=== PATIENT | female | born 2000 | race Two or more races ===

== ENCOUNTER 2022-11-26 08:26 | Emergency (ER) | payer OTHER ==
[2022-11-26 08:36] VITALS: BMI 26.6
[2022-11-26] MEDS ORDERED: LIDOCAINE 1%/EPI 1:100000 (50 ML MULTI DOSE VIAL) ONE (09:27)
[2022-11-26] MEDS ORDERED: KETAMINE HCL 200 MG/20 ML VIAL IVPUSH ONE (09:46)
[2022-11-26] MEDS ORDERED: LIDOCAINE 2%/EPINEPHRINE 1:100000 (50 ML MD VIAL) NR ONE (09:52)
[2022-11-26] MEDS ORDERED: LIDOCAINE 1%/EPI 1:100000 (50 ML MULTI DOSE VIAL) NR ONE (09:54)
[2022-11-26] MEDS ORDERED: KETAMINE HCL 200 MG/20 ML VIAL IM ONE (10:15)
[2022-11-26] MEDS ORDERED: MIDAZOLAM HCL 5 MG/1 ML Single Dose Vial IM ONE ×2 (10:23→11:31)
[2022-11-26] MEDS ORDERED: MIDAZOLAM HCL 5 MG/1 ML Single Dose Vial ONE ×2 (10:25→11:36)
[2022-11-26] MEDS ORDERED: MIDAZOLAM HCL 2 MG/2 ML SINGLE DOSE VIAL IVPUSH ONE (10:58)
[2022-11-26] MEDS ORDERED: MIDAZOLAM HCL 2 MG/2 ML SINGLE DOSE VIAL IM ONE (11:00)
[2022-11-26] MEDS ORDERED: MIDAZOLAM HCL 2 MG/2 ML SINGLE DOSE VIAL ONE (11:02)
[2022-11-26 17:28] VITALS: BP 116/76; PULSE 67; RESP 20; TEMP 97.7
== END 2022-11-26 18:48 | disposition home or self-care (01) ==
LOC: JER 08:26
PROC: 0HQ0XZZ Repair Scalp Skin, External Approach (ICD-10-PCS; principal; 2022-11-26)
PROC: 3E023GC Introduction of Other Therapeutic Substance into Muscle, Percutaneous Approach (ICD-10-PCS; 2022-11-26)
DX: S01.01XA Laceration without foreign body of scalp, initial encounter (principal); W19.XXXA Unspecified fall, initial encounter
CPT/HCPCS: 70450-TC; 99284-25

== ENCOUNTER 2022-12-03 13:10 | Emergency (ER) | payer OTHER ==
[2022-12-03 13:18] VITALS: BP 98/65; PULSE 71; RESP 18; TEMP 98; BMI 25.7
[2022-12-03] MEDS ORDERED: BACITRACIN ZINC 15 GM TUBE TOPICAL OINTMENT ONE (14:01)
== END 2022-12-03 14:07 | disposition home or self-care (01) ==
LOC: JERFT 13:10
DX: Z48.02 Encounter for removal of sutures (principal)
CPT/HCPCS: 99281-25